=== PATIENT | male | born 1990 | race Caucasian/White ===

== ENCOUNTER 2016-10-31 18:05 | Emergency (ER) | payer MEDICAID ==
[~2016-10-31] VITALS: Ht 175.3 cm; Wt 72.6 kg
[~2016-10-31 18:05] MED LIST: ACYCLOVIR 400M400 MG PO; KEFLEX 500MG.500 MG PO
--- NOTE | 2016-10-31 18:29 | Urgent Treatment Center Report ---
History of Present Issue Date/Time Seen by Provider 10/31/16 1821 Visit Reason Pt arrived:Walked Presenting Problem:PT C/O EAR PAIN, ABD CRAMPS, AND DIARRHEA X2 DAYS Location if Accident: Onset of symptoms date/time:/ or onset unknown for:MEDICAL HX UNKNOWN Have you (or family members/close friends) recently traveled outside the [place]? N If Yes, where/when: Have you had exposure to infectious disease within the past month? TB? Other? Specify: Here c/o bilateral ear pain but since here, also wants to mention the diarrhea he had yesterday w/ abdominal cramping. Pt is also requesting work excuse for today. Reporting he called PCP's office earlier today and they coudln't get him in. Bilateral ear pain started yesterday. Worried about ear infection. Hx of frequent infections w/ last 3-4 months ago. Reporting PCP said if they continue, he might need tubes. Denies ear drainage. Pain 7/10, pressure, worse at night when flat, "they pop and crack too at times". Denies change in hearing, dizziness, fever. Diarrhea most of the day yesterday. Abdominal cramping before and during BMs but better immediately following BMs. No diarrhea today and abdominal cramping improved. No known sick contacts. Tylenol helps ears but hasn 't taken or tried anything else for symptoms. Source patient Exam Limitations no limitations ALLERGIES Coded Allergies: No Known Allergies (10/25/15) Home Medications Active Scripts CEPHALEXIN (Keflex 500MG Capsule) 500 MG PO QID #30 CAP Prov: 01/28/16 History Medical History General CAD? No Angina: No [place]: No Hypertension? No Hyperlipidemia? No CHF? No DVT? No PE? No COPD? No Asthma? No Anemia? No GERD? No Gastric ulcers? No GI Bleed? No Hernia? No Thyroid Problems? No Hypothyroidism? No CVA? No Seizures? No Diabetes? No Renal Insuffiency? No UTI? No Stones? No BPH? No GB Disease: No Nephritic Syndrome? No Asplenia? No Hepatitis? No Sickle Cell Disease? No Arthritis? No Migraines? No Cataracts? No Glaucoma? No MRSA? No HIV? No TB? No Anxiety? No Depression? No Cancer? No More? No Immunization HX DT/Tetanus 5-10 Years Ago Surgical Hx Previous Surgery?Y APPENDECTOMY Social History Smoking Hx Smoker: Current Every Day Smoker Tobacco: Yes Type Cigarettes Packs/day < 1 Pack Alcohol Alcohol: No Review of Systems All Other Systems Reviewed and Negative Constitutional see HPI, denies chills, denies malaise, denies weakness Eyes denies drainage ENT see HPI. denies: nose discharge, nose congestion, throat pain. Respiratory denies cough Gastrointestinal see HPI, denies nausea, denies vomiting Musculoskeletal denies other (aches) Psychiatric/Neurological denies headache Physical Exam Vital Signs Vital Signs Date Time Temp Pulse Resp B/P Pulse O2 O2 Flow FiO2 Ox Delivery Rate 10/31 1816 98.3 89 20 134/81 97 General Appearance normal appearance, no apparent distress Ear, Nose, Throat normal pharynx, normal nares, mickey EACs normal, mickey TMs intact, pearly finn, bulging, fluid bubbles behind TMs Neck non-tender, supple Respiratory Status No: respiratory distress (no cough). Lung Sounds anterior: lungs clear. posterior: lungs clear. bilateral: lungs clear. Cardiovascular regular rate/rhythm, no peripheral edema, no murmur Gastrointestinal soft, no organomegaly, no pulsatile mass, abnormal bowel sounds (hyperactive), no guarding, no rebound, tenderness (mild, not consistent,RLQ, LLQ) Neurologic alert Skin normal color, warm/dry Lymphatic no adenopathy (head/neck) Medical Decision Making LABS/Meds/Orders Pt receiving controlled substance in ED? No Departure Departure Time of Disposition 1828 Disposition DC Home or Self Care(routine) Clinical Impression Primary Impression: Acute serous otitis media of both ears Qualifiers: Recurrence: recurrent Qualified Code: H65.06 - Acute serous otitis media, recurrent, bilateral Secondary Impressions: Diarrhea Qualifiers: Diarrhea type: unspecified type Qualified Code: R19.7 - Diarrhea, unspecified Condition STABLE Referrals Ravin BOO,Fox Villareal (Family) Call tomorrow and schedule follow up appt. No infection at this time. Patient Instructions DI for Ear Pain-Adult, DI for Viral Gastroenteritis -- Adult Additional Instructions * Diarrhea could have been the result of a food or possibly viral GI illness. * Discussed fluid behind TMs. Enc. to sleep elevated, ibuprofen and tylenol as needed for pain. No sign of infection at this time. Start claritin and flonase to help w/ fluid and ear pressure. * Monitor Temp. Would not expect a fever at this time since no fever since onset. If occurs, be sure to follow up. * Follow up immediately for new or worsening symptoms OR no noticeable improvement over the next 48 hours. * Increase fluids. Water, gatorade, powerade, juice OR pedialyte with limited formula/dairy in children. * No food is ok as long as you or your child is drinking. Once ready to eat, start bland. bananas, rice, applesauce, toast * Contagious until no diarrhea, vomiting, fever x 24 hours without medication * Avoid anti-diarrheals unless told otherwise. Best to let the virus run its course. Follow up IMMEDIATELY for new or worsening symptoms OR no noticeable improvement over the next 48 hours. Discharge Counseling Counseled pt/family regarding diagnosis, medications/RX, home care, follow up needs Prescriptions Current Visit Scripts Fluticasone Propionate (Flonase 50 Mcg Nasal [place]) 2 SPRAY NA DAILY #1 BOT Loratadine (Claritin 10MG) 10 MG PO DAILY #30 TAB at 1840
[2016-10-31] MEDS ORDERED: FLONASE 50 MCG16 GM (18:34)
[2016-10-31] MEDS ORDERED: CLARITIN 10MG T10 MG PO (18:34)
[2016-10-31 18:36] VITALS: BP 134/81
== END 2016-10-31 18:37 | disposition home or self-care (01) ==
LOC: UTC 18:05
DX: H65.06 Acute serous otitis media, recurrent, bilateral (principal); R19.7 Diarrhea, unspecified; Z72.0 Tobacco use

== ENCOUNTER 2017-03-01 18:43 | Emergency (ER) | payer MEDICAID ==
[~2017-03-01] VITALS: Ht 175.3 cm; Wt 77.1 kg
[~2017-03-01 18:43] MED LIST changes: +CLARITIN 10MG T10 MG PO; +FLONASE 50 MCG16 GM
--- NOTE | 2017-03-01 19:17 | Urgent Treatment Center Report ---
History of Present Issue Date/Time Seen by Provider 03/01/171916 Visit Reason Pt arrived:Walked Presenting Problem:PT C/O LOWER BACK PAIN AFTER FALLING ONTO HIS BACK ON CONCRETE YESTERDAY Location if Accident:Home Onset of symptoms date/time:/ or onset unknown for:MEDICAL HX UNKNOWN Have you (or family members/close friends) recently traveled outside the [place]? N If Yes, where/when: Have you had exposure to infectious disease within the past month? TB? Other? Specify: c/o right sided low back pain s/p a fall on concrete yesterday morning. reports he slid on concrete and landed on his right side/low back. Feels more stiff today. Hasn't taken or tried anything for symptoms. Denies hip pain, LE pain or weakness. No N/T. No incontinence. Bowel and bladder working "normally". pain currently 4/10, aches. Source patient Exam Limitations no limitations ALLERGIES Coded Allergies: No Known Allergies (10/25/15) Home Medications Active Scripts CEPHALEXIN (Keflex 500MG Capsule) 500 MG PO QID #30 CAP Prov: 01/28/16 Fluticasone Propionate (Flonase 50 Mcg Nasal [place]) 2 SPRAY NA DAILY #1 BOT Prov: 10/31/16 Loratadine (Claritin 10MG) 10 MG PO DAILY #30 TAB Prov: 10/31/16 History Medical History General CAD? No Angina: No [place]: No Hypertension? No Hyperlipidemia? No CHF? No DVT? No PE? No COPD? No Asthma? No Anemia? No GERD? No Gastric ulcers? No GI Bleed? No Hernia? No Thyroid Problems? No Hypothyroidism? No CVA? No Seizures? No Diabetes? No Renal Insuffiency? No UTI? No Stones? No BPH? No GB Disease: No Nephritic Syndrome? No Asplenia? No Hepatitis? No Sickle Cell Disease? No Arthritis? No Migraines? No Cataracts? No Glaucoma? No MRSA? No HIV? No TB? No Anxiety? No Depression? No Cancer? No More? No Immunization HX DT/Tetanus 5-10 Years Ago Surgical Hx Previous Surgery?Y APPENDECTOMY Social History Smoking Hx Smoker: Current Every Day Smoker Tobacco: Yes Type Cigarettes Packs/day < 1 Pack Alcohol Alcohol: No Review of Systems All Other Systems Reviewed and Negative Constitutional see HPI, denies fever, denies malaise Gastrointestinal denies no symptoms reported Musculoskeletal see HPI, denies joint pain, denies joint swelling, denies muscle pain, muscle stiffness, denies neck pain, denies other (no head injury) Skin denies lesions, denies lumps, denies rash Psychiatric/Neurological see HPI Physical Exam Vital Signs Vital Signs Date Time Temp Pulse Resp B/P Pulse O2 O2 Flow FiO2 Ox Delivery Rate 03/01 1930 18 03/01 1850 97.9 79 20 127/78 99 General Appearance normal appearance, no apparent distress Respiratory Status No: respiratory distress. Cardiovascular no peripheral edema Back normal inspection, no vertebral tenderness, gait abnormality (just slow), strt leg raising(L)-NML, strt leg raising(R)-NML, mild tenderness entire right lumbar region Extremities non-tender, normal range of motion, normal inspection Strength 5 Lower Ext (L), 5 Lower Ext (R) Neurologic alert, no motor/sensory deficits, oriented x 3 Reflexes Reflexes normal Yes (patellar) Skin normal color, warm/dry Medical Decision Making LABS/Meds/Orders Pt receiving controlled substance in ED? No Results/Orders Current Medication Orders Sig/Radhika Start time Last Medication Dose Route Stop Time Status Admin Ketorolac 60 MG ONCE ONE 03/01 1930 DC 03/01 Tromethamine IM 03/01 Ketorolac 0 .STK-MED ONE 03/01 1926 DC Tromethamine .ROUTE Orders Procedure Date/time Status LUMBAR SPINE 5 VIEWS 03/01 1927 Active XRAY/CT/US XRAY/CT/US XRAY L-spine XR interpretation by reviewed by me (w/Dr. Alicia, ER MD) Xray Results normal/NAD, no fracture seen Progress [facility] Progress Notes 1 Date 03/01/17 Time 1954 Comment Danisha reports ER MDs are changing shift and not available to review xray. Will ask them to once report is over [facility] Progress Notes 2 Date 03/01/17 Time 2019 Comment Pain much improved with toradol. Rvwd POC. Aware xrays appear normal but waiting for confirmation from ER MD. Pt states + understanding Departure Departure Time of Disposition 2029 Disposition DC Home or Self Care(routine) Clinical Impression Primary Impression: Right-sided low back pain without sciatica Qualifiers: Chronicity: acute Qualified Code: M54.5 - Low back pain Secondary Impressions: Fall Qualifiers: Encounter type: initial encounter Qualified Code: W19.XXXA - Unspecified fall, initial encounter Condition STABLE Referrals Ravin BOO,Fox Villareal (Family) IMMEDIATELY for new or worsening symptoms OR no noticeable improvement over the next 3 days Patient Instructions DI for Back Strain or Sprain Additional Instructions * Ibuprofen 600-800mg every 6 hours with meal as needed for pain/inflammation. * Remember you had a toradol shot, similiar anti-inflammatory in clinic. No ibuprofen for 6 hours afterwards * No additional anti-inflammatories like motrin, aleve, advil with the above amount of ibuprofen. You CAN still take Tylenol every 4 hours as needed if you need something more for pain. * Ice x15-20 mins 3-4 times a day for first 48 hours after the initial injury followed by moist heat x15-20 mins 3-4 times a day to affected area * Keep this area active. No movement leads to more stiffness. However, take it easy too and avoid heavy lifting, pushing, pulling. Discharge Counseling Counseled pt/family regarding diagnosis, test results, medications/RX, home care, follow up needs at 2034
[2017-03-01 20:38] VITALS: BP 127/78
--- NOTE | 2017-03-01 21:04 | RADIOLOGY REPORT PS360 ---
EXAM: LUMBAR SPINE 5 VIEWS HISTORY: Low back pain slid on concrete onto right hip/low back 02/28 at 7am ORDERING PHYSICIAN: GINNY NICK APRN PATIENT AGE: 26 years COMPARISON: None FINDINGS: Normal alignment. No fracture or dislocation. No lytic or blastic change. No significant degenerative change. The disc spaces are preserved. IMPRESSION: Negative lumbar spine
== END 2017-03-01 20:39 | disposition home or self-care (01) ==
LOC: UTC 18:43
DX: M54.5 Low back pain (principal); W01.0XXA Fall on same level from slipping, tripping and stumbling without subsequent striking against object, initial encounter; Y92.9 Unspecified place or not applicable; F17.210 Nicotine dependence, cigarettes, uncomplicated

== ENCOUNTER 2017-04-29 14:12 | Emergency (ER) | payer OTHER, MEDICAID ==
[~2017-04-29] VITALS: Ht 175.3 cm; Wt 79.4 kg
--- OUTSIDE RECORDS SUMMARY | 2017-04-29 14:21 | External Medical Summary Rpt | CCD ---
Author Author , EDGARDO Organization EDGARDO Address Unknown Phone [email or web address] Care Team Providers Care Specialist Physicians Name Role Phone Caridad Alicia MD, Unavailable Unavailable Caridad Alicia MD Purpose Continuity of Care Document - 08-02-2013 through 2016 Problems Code Diagnosis DOS Provider Status 692.9 692.9 08-02-2013 [place] [facility] 788.0 788.0 RENAL 08-02-2013 [place] [facility] NONINFECTIV E GASTROENTER ITIS AND COLITIS, UNSPECIFIED L03.90 CELLULITIS, UNSPECIFIED S01.21XA LACERATION WITHOUT FOREIGN BODY OF NOSE, INITIAL ENCOUNTER S09.90XA UNSPECIFIED INJURY OF HEAD, INITIAL ENCOUNTER Allergies, Adverse Reactions, Alerts Type Allergy to substance Adverse Reaction to Substance Substance Reaction Severity INGREDIENT: NO KNOWN Unknown Unknown - NO KNOWN DRUG ALLERGY Medications Na ND Rx Da Fi Fi Am Da Di Ph RX Ph St me C No te ll ll ou ys ag ar # ys at rm s nt no ma ic us Or Da si cy ia de te s n re d Sa 63 02 0 No li 80 -1 ne 70 4- Lo 10 20 ng Fl 07 14 er us 5 h Ac 10 ti ML ve Sy ri ng e KE 00 02 0 No TO 40 -1 RO 93 4- Lo LA 79 20 ng C 50 14 er 30 1 Ac MG ti /M ve L AL AC 51 02 0 No ET 07 -1 AM 90 4- Lo IN 16 20 ng OP 19 14 er HE 9H N Ac W/ ti CO ve DE IN E #3 TA K Vital Signs 08-02-2013 07:55 Name Value Interpretat Reference Comment ion Range BP 61 mm[Hg] Diastolic BP Systolic 126 mm[Hg] Heart 78 /min Rate/Pulse O2% 98 % Respiratory 20 /min Rate 08-02-2013 06:40 Name Value Interpretat Reference Comment ion Range BP 72 mm[Hg] Diastolic BP Systolic 139 mm[Hg] Heart 87 /min Rate/Pulse O2% 98 % Respiratory 20 /min Rate Results Labs Lab Lab Date Result Refere Interp Status Commen Order Detail nces retati t Range on URINALYSIS/COMPLETE (08-02-2013 06:35) URINE 14-2 YELLOW YELLOW complet COLOR 014 ed 06:35 URINE 08-02-2 CLEAR CLEAR complet APPEARA 014 ed NCE 06:35 URINE 08-02-2 NEGATIV NEG complet GLUCOSE 014 E ed - 06:35 DIPSTIC K URINE 14-2 NEGATIV NEG complet BILIRUB 014 E ed IN - 06:35 DIPSTIC K URINE 08-02-2 NEGATIV NEG complet KETONE 014 E mg/dL ed 06:35 URINE 08-02-2 1.025 1.005-1 complet SPECIFI 014 UNK .030 ed C 06:35 GRAVITY URINE 08-02-2 NEGATIV NEG complet BLOOD 014 E ed 06:35 URINE 08-02-2 6.0 UNK 5.0-8.5 complet PH 014 ed 06:35 URINE 14-2 NEGATIV NEG complet PROTEIN 014 E mg/dL ed - 06:35 DIPSTIC K URINE 08-02-2 0.2 NEG complet UROBILI 014 E.U./dL ed NOGEN - 06:35 DIPSTIC K URINE 14-2 NEGATIV NEG complet NITRATE 014 E ed - 06:35 DIPSTIC K URINE 14-2 NEGATIV NEG complet LEUK 014 E ed ESTERAS 06:35 E URINE 08-02-2 3-5 0 complet RBC 014 rbc/hpf ed 06:35 URINE 08-02-2 OCC O complet WBC 014 wbc/hpf ed 06:35 URINE 14-2 OCC OCC complet SQUAMOU 014 #/hpf ed S CELLS 06:35 COMPREHENSIVE METABOLIC PANEL (08-02-2013 06:05) Glucose 08-02-2 106 74-106 complet 014 mg/dL ed Bld-mCn 06:05 c BUN 08-02-2 22 7-18 complet Bld-mCn 014 mg/dL ed c 06:05 Creat 08-02-2 1.1 0.8-1.3 complet SerPl-m 014 mg/dL ed Cnc 06:05 Creat 100 50-200 complet Cl 014 ML/MIN ed predict 06:05 ed SerPl C-G-vRa te GFR/BSA 82 Greater complet .pred 014 ML/MIN than ed SerPl 06:05 60 Schwart z-vRate Sodium 140 136-145 complet SerPl-s 014 mmoL/L ed Cnc 06:05 Potassi 3.7 3.5-5.1 complet um 014 mmoL/L ed SerPl-s 06:05 Cnc Chlorid 103 98-107 complet e 014 mmoL/L ed SerPl-s 06:05 Cnc CO2 28 21.0-32 complet SerPl-s 014 mmoL/L .0 ed Cnc 06:05 Calcium 8.6 8.5-10. complet 014 mg/dL 1 ed SerPl-m 06:05 Cnc Prot 7.6 6.4-8.2 complet SerPl-m 014 gm/dL ed Cnc 06:05 Albumin 4.0 3.4-5.0 complet 014 gm/dL ed SerPl-m 06:05 Cnc Globuli 3.6 1.3-3.2 complet n 014 gm/dL ed Ser-mCn 06:05 c Albumin 1.1 UNK 1.1-1.8 complet /Glob 014 ed SerPl-m 06:05 Rto Bilirub 0.5 0.2-1.0 complet 014 mg/dL ed SerPl-m 06:05 Cnc AST 20 U/L 15-37 complet SerPl-c 014 ed Cnc 06:05 ALT 16 U/L 12-78 complet SerPl-c 014 ed Cnc 06:05 ALP 116 U/L 50-136 complet SerPl-c 014 ed Cnc 06:05 CBC with AUTO DIFF (08-02-2013 06:05) WBC # -14-2 12.5 4.8-10. complet Bld 014 K/MM3 8 ed Auto 06:05 RBC # 14-2 5.52 4.6-6.2 complet Bld 014 M/mm3 ed Auto 06:05 Hgb 14-2 16.2 14.1-18 complet Bld-mCn 014 g/dL .0 ed c 06:05 Hct Fr 08-02-2 47.6 % 42.0-52 complet Bld 014 .0 ed 06:05 MCV RBC 08-02-2 86.3 fl 82.2-97 complet 014 .8 ed 06:05 MCH RBC 08-02-2 29.3 pg 27-31.2 complet Qn 014 ed Auto 06:05 MEAN 142 34.0 31.8-35 complet CORPUSC 014 g/dl .4 ed ULAR 06:05 HGB CONC RDW RBC 08-02-2 13.5 % 11.5-17 complet Auto 014 .5 ed 06:05 Platele 14-2 312 142-424 complet t Bld 014 K/mm3 ed Ql 06:05 Manual MEAN 7.2 fl 7.4-10. complet PLATELE 014 4 ed T 06:05 VOLUME Granulo 14-2 65.7 % 37.0-80 complet cytes 014 .0 ed Fr Bld 06:05 Auto LYMPH % 14-2 26.0 % 10-50 complet 014 ed 06:05 Monocyt 14-2 4.9 % 1.7-9.3 complet es Fr 014 ed Bld 06:05 Auto Eosinop -14-2 2.9 % 0.1-12. complet hil Fr 014 0 ed Bld 06:05 Auto Basophi -14-2 0.6 % 0.1-2.0 complet ls Fr 014 ed Bld 06:05 Auto Granulo -14-2 8.2 1.3-8.0 complet cytes # 014 K/mm3 ed Bld 06:05 Auto Lymphoc -14-2 3.3 0.7-4.5 complet ytes Fr 014 K/mm3 ed Bld 06:05 Auto Monocyt 02-14-2 0.6 0.1-1.0 complet es # 014 K/mm3 ed Bld 06:05 Auto Eosinop -14-2 0.4 0.0-0.4 complet hil # 014 K/mm3 ed Bld 06:05 Auto Basophi 02-14-2 0.1 0-0.2 [facility] # 014 K/MM3 ed Bld 06:05 Auto Encounters Encounter Start End Date Code Location Performer Type Date Emergency MISAEL Alicia MD (ER) 4 06:21 4 07:56 [facility]
--- OUTSIDE RECORDS SUMMARY | 2017-04-29 14:21 | External Medical Summary Rpt | CCD ---
Author Author , EDGARDO Organization EDGARDO Address Unknown Phone Care Team Providers Care Library Cataloging Technician Name Role Phone Caridad Alicia MD, Unavailable Unavailable Caridad Alicia MD Purpose Continuity of Care Document - 08-02-2013 through 2016 Problems Code Diagnosis DOS Provider Status 692.9 692.9 08-02-2013 [place] DERMATITIS [facility] 788.0 788.0 RENAL 08-02-2013 [place] [facility] NONINFECTIV E GASTROENTER ITIS AND COLITIS, [...] Alicia MD (ER) 4 06:21 4 07:56 [facility]
--- OUTSIDE RECORDS SUMMARY | 2017-04-29 14:22 | External Medical Summary Rpt | CCD ---
Author Author , EDGARDO REYNOSO Address Unknown Phone [email or web address] Immunization Name Date Rout CVX Reac Dose Comm Prov Is Faci e tion ent ider Refu lity Give sed n PCV7 07-1 100 999 Hist H149 No H149 - oric 03 al Info rmat ion - Sour ce Unsp ecif ied Hep 09-0 8 999 Hist H149 No H149 B, - oric ped/ 02 al adol Info rmat ion - Sour ce Unsp ecif ied MMR 09-0 3 999 Hist H149 No H149 - oric 02 al Info rmat ion - Sour ce Unsp ecif ied Td 08-0 9 999 Hist H149 No H149 (jocelyne 6-20 oric lt), 02 al Info adso rmat rbed ion - Sour ce Unsp ecif ied Elder 08-0 10 999 Hist H149 No H149 o-IP 6-20 oric V 02 al Info rmat ion - Sour ce Unsp ecif ied Hep 08-0 8 999 Hist H149 No H149 B, -20 oric ped/ 02 al adol Info rmat ion - Sour ce Unsp ecif ied
--- OUTSIDE RECORDS SUMMARY | 2017-04-29 14:22 | External Medical Summary Rpt | CCD ---
Author Author [employer] Organization [employer] Address Unknown Phone Unavailable Purpose Continuity of Care Document - through 2016
--- OUTSIDE RECORDS SUMMARY | 2017-04-29 14:22 | External Medical Summary Rpt | CCD ---
Author Author , EDGARDO REYNOSO Address Unknown Phone Immunization Name Date Rout CVX Reac Dose [...]
--- NOTE | 2017-04-29 15:36 | Urgent Treatment Center Report ---
History of Present Issue Date/Time Seen by Provider 04/29/17 1535 Visit Reason Pt arrived:Walked Presenting Problem:PT STATES HE GOT HIT IN THE LEFT SIDE OF HIS JAW WITH A METAL BED Location if Accident: Onset of symptoms date/time:/ or onset unknown for:MEDICAL HX UNKNOWN Have you (or family members/close friends) recently traveled outside the [place]? N If Yes, where/when: Have you had exposure to infectious disease within the past month? TB? Other? Specify: Source patient, RN notes reviewed Exam Limitations no limitations Comment Patient was at work, taking metal bed off [employer], when it fell forward striking him in the left side of his face/jaw. Knocked him backwards, but did not fall. Did not have LOC. Pain in left jaw, worse with opening mouth. ALLERGIES Coded Allergies: No Known Allergies (10/25/15) Home Medications Active Scripts Fluticasone Propionate (Flonase 50 Mcg Nasal [place]) 2 SPRAY NA DAILY #1 BOT Prov: 10/31/16 Loratadine (Claritin 10MG) 10 MG PO DAILY #30 TAB Prov: 10/31/16 History Medical History General CAD? No Angina: No [place]: No Hypertension? No Hyperlipidemia? No CHF? No DVT? No PE? No COPD? No Asthma? No Anemia? No GERD? No Gastric ulcers? No GI Bleed? No Hernia? No Thyroid Problems? No Hypothyroidism? No CVA? No Seizures? No Diabetes? No Renal Insuffiency? No UTI? No Stones? No BPH? No GB Disease: No Nephritic Syndrome? No Asplenia? No Hepatitis? No Sickle Cell Disease? No Arthritis? No Migraines? No Cataracts? No Glaucoma? No MRSA? No HIV? No TB? No Anxiety? No Depression? No Cancer? No More? No Immunization HX DT/Tetanus 5-10 Years Ago Surgical Hx Previous Surgery?Y APPENDECTOMY Social History Smoking Hx Packs/day < 1 Pack Alcohol Alcohol: No Review of Systems All Other Systems Reviewed and Negative ENT mouth pain. Musculoskeletal other (jaw pain) Physical Exam Vital Signs Vital Signs Date Time Temp Pulse Resp B/P Pulse O2 O2 Flow FiO2 Ox Delivery Rate 04/29 1534 98.6 83 20 122/78 98 04/29 1530 98.6 83 20 122/78 98 General Appearance normal appearance, no apparent distress Ear, Nose, Throat hearing grossly normal, normal ENT inspection, left jaw pain, no clicking/movement Respiratory Status No: respiratory distress, trachea midline, chest symmetrical. Lung Sounds bilateral: normal breath sounds, lungs clear. Cardiovascular normal exam, regular rate/rhythm, no peripheral edema, no gallop, no JVD, no murmur, no rub Extremities non-tender, normal range of motion, normal inspection, normal capillary refill Neurologic alert, normal exam, oriented x 3 Mental status normal mood/affect Medical Decision Making LABS/Meds/Orders Pt receiving controlled substance in ED? No Results/Orders Orders Procedure Date/time Status TEMPORAL TOI. JOINT-BILATERAL 04/29 153 Active MANDIBLES 04/29 1538 Active XRAY/CT/US XRAY/CT/US XRAY mandible XR interpretation by reviewed by me (reviewed with Dr Scott) Xray Results no fracture seen Departure Departure Time of Disposition 1646 Disposition DC Home or Self Care(routine) Clinical Impression Primary Impression: Jaw pain Condition STABLE Referrals LINNEA GARCIA Patient Instructions DI for Blunt Trauma Additional Instructions Ice X 24 hours. F/U with PCP 2-3 days. Discharge Counseling Counseled pt/family regarding diagnosis, test results, medications/RX, home care, follow up needs Prescriptions Current Visit Scripts NAPROXEN (NAPROSYN 500MG TAB) 500 MG PO BID #20 TAB at 1650
[2017-04-29] MEDS ORDERED: NAPROSYN 500MG500 MG PO (16:49)
[2017-04-29 16:57] VITALS: BP 139/83
--- NOTE | 2017-04-29 21:06 | RADIOLOGY REPORT PS360 ---
MANDIBLES CLINICAL INDICATION: Pain following injury, right-sided mandibular pain HIT WITH METAL BED ORDERING PHYSICIAN: OLIVER MICHAEL PATIENT AGE: 26 years COMPARISON: None FINDINGS: No fracture or dislocation. No bony or joint abnormality. IMPRESSION: Negative mandible.
--- NOTE | 2017-04-29 21:10 | RADIOLOGY REPORT PS360 ---
TEMPORAL TOI. JOINT-BILATERAL COMPARISON: None HISTORY: Right mandibular pain following injury TECHNIQUE: 4 views, open and closed mouth views of each side FINDINGS: There is only limited anterior translation of the mandibular condyles on both sides in the open-mouth views. No obvious fracture. Consider CT for more thorough evaluation if clinically warranted. IMPRESSION: Limited translation of the mandibular condyles in the open mouth views with only mild opening of the mouth. Otherwise negative
== END 2017-04-29 17:00 | disposition home or self-care (01) ==
LOC: UTC 14:12
DX: S00.83XA Contusion of other part of head, initial encounter (principal); W22.8XXA Striking against or struck by other objects, initial encounter; Y92.69 Other specified industrial and construction area as the place of occurrence of the external cause; Y99.0 Civilian activity done for income or pay

== ENCOUNTER → 2017-05-05 | Outpatient (CLI) | payer OTHER, MEDICAID ==
[~2017-05-05] MED LIST changes: +NAPROSYN 500MG500 MG PO
--- NOTE | 2017-05-08 15:27 | RADIOLOGY REPORT PS360 ---
CT SINUS (MAX-FACIAL W/O CONT) 3-D volume reconstruction images HISTORY: JAW PAINleft jaw hit with a bed and satisfactory where patient works. Left jaw pain and jaw popping cracking sensation. Patient Age: 26 years: Male Ordering Physician: OLIVER WOOD TECHNIQUE: Helical CT scanning performed through the facial bones. Would patient closed mouth position. For evaluation of facial bones and TMJ region. 3-D volume rendering reconstructions images with shading performed subsequently on independent workstation.... 77 CPT COMPARISON :Previous TMJ radiograph images from 04/29/2017 FINDINGS Subtle asymmetry at left versus right TMJ Right TMJ appears normal. Mandibular condyle with the mandibular condyle resides centrally within the fossa pelvis] Left TMJ. Subtle anterior translation of left mandibular condyle with close mouth CT imaging. With this there also slight widening of the superior/& posterior aspect left TMJ joint, vs the right TMJ joint. These features Best appreciated sagittal & coronal image set of images (& included in the highlighted in Lopez image set.). There is a biconcave disc meniscus-like structure at the TMJ. This asymmetry does raise concern that there is posterior thickening or displacement of this disc component at left TMJ. [place] subspecialist consult.-With ENT or oral maxillofacial specialist.. . The mandible and facial bones otherwise appears intact. No facial bone fractures are evident. The sinuses are clear. The temporal fossa appears intact with no fracture. Maxillary sinuses well-developed and clear. Ostiomeatal pathway patent bilaterally with only some scant mucosal thickening at entry of ostia on right. Minor mucosal thickening and partial opacification ethmoid air cells right greater than left. (As seen on Axial image 30 & coronal slice 23.) Sphenoid sinus clear. Small hypoplastic frontal sinus with mild mucosal thickening the junction of frontal sinus/& ethmoid air cells. Mild deviation nasal septum with gentle convexity to left.. Twila bullosa mildly enlarges right middle turbinate . IMPRESSION. 1. Subtle abnormalities the left TMJ. Slight anterior translation of the left mandibular condyle at left TMJ versus right.; With slight widening at superior & posterior aspect of the left TMJ joint vs right. This raises concern & suspicion regarding possible underlying disc abnormalities at the left TMJ joint.-. 2. No fractures are evident. Mandibular condyles intact bilateral. 3. Incidental note mild ethmoid sinusitis features inflammatory changes most evident at the right ethmoid air cells.. Also minor mucosal thickening at junction ethmoid-frontal sinus.
== END ==
LOC: RAD 09:37
DX: R68.84 Jaw pain (principal)